=== PATIENT | female | born 1990 | race Two or more races ===

== ENCOUNTER 2018-11-09 13:30 | Observation (INO) | payer MEDICAID ==
[~2018-11-09] VITALS: Ht 149.9 cm; Wt 66.7 kg
[~2018-11-09 13:30] MED LIST: LABE200T18 PO; PREN-96 PO
[2018-11-09] MEDS ORDERED: LACTATED RINGER'S 1,000 ML IV ONE ×2 (14:30→16:00)
[2018-11-09 15:11] LABS: Basophils # (auto) 0 uL; Basophils % (auto) 0.1 % (0.0-2.0); Eosinophils # (auto) 0 uL; Eosinophils % (auto) 0.3 % (0.0-7.0); Hematocrit 36.9 % (36.0-46.0); Hemoglobin 12.9 g/dL (12.2-16.2); Lymphocytes # (auto) 1.1 uL; Lymphocytes % (auto) 9.9 % (10.0-50.0); Mean Corpuscular Hemoglobin 32.9 pg (28.0-32.0); Mean Corpuscular Volume 94.1 fL (80.0-100.0); Monocytes # (auto) 0.5 uL; Monocytes % (auto) 4.5 % (0.0-12.0); Neutrophils # (auto) 9.5 uL; Neutrophils % (auto) 85.2 % (37.0-80.0); Platelet Count (auto) 249 10^3/uL (140-450); Red Blood Cells 3.92 10^6/uL (4.0-5.20); Red Cell Distribution Width 13.1 % (11.8-14.3); White Blood Cell 11.2 10^3/uL (4.4-10.8)
[2018-11-09 15:27] LABS: INR 0.86 (0.9-1.15); Partial Thromboplastin Time 25.2 sec (23.64-32.05)
[2018-11-09 15:41] LABS: Albumin 3.1 g/dL (3.4-5.0); Potassium 3.9 mmol/L (3.5-5.1)
[2018-11-09 15:46] LABS: Bilirubin, Total 0.3 mg/dL (0.2-1.0); Total Protein 7.2 g/dL (6.4-8.2); Uric Acid 3.3 mg/dL (2.6-6.0)
[2018-11-09 15:59] LABS: Urine Bacteria NONE SEEN /hpf (None Seen); Urine Blood Negative /uL (Negative); Urine Specific Gravity 1.005 (1.001-1.035); Urine WBC 2 /hpf (0 - 5)
[2018-11-09] MEDS ORDERED: BETAMETHASONE ACET (6MG/ML) 5ML VIAL IM SCH (17:25)
--- NOTE | 2018-11-09 17:57 | NUR ---
IV removal IV DC'd with clean sterile technique, catheter fully intact. Pressure dressing applied to site. Patient tolerated well.
== END 2018-11-09 18:10 | disposition home or self-care (01) | DRG 563 ==
LOC: LDRP 13:30
PROVIDERS: ADMIT Specialist; ATTEND Specialist
DX: O60.03 Preterm labor without delivery, third trimester (principal); O36.8330 Maternal care for abnormalities of the fetal heart rate or rhythm, third trimester, not applicable or unspecified; Z3A.29 29 weeks gestation of pregnancy
CPT/HCPCS: 36415; 59025; 76815; 80053; 81001; 81002; 84550; 85025; 85362; 85610; 85730; 96372; G0378; J0702; 96361; 96365; 96366

== ENCOUNTER 2018-11-10 18:30 | Observation (INO) | payer MEDICAID ==
[~2018-11-10] VITALS: Ht 144.8 cm; Wt 59.0 kg
[~2018-11-10 18:30] MED LIST changes: -LABE200T18 PO
[2018-11-10] MEDS ORDERED: BETAMETHASONE ACET (6MG/ML) 5ML VIAL IM ONE ×2 (19:15→19:45)
[2018-11-10 20:03] LABS: Urine Bacteria NONE SEEN /hpf (None Seen); Urine Blood Negative /uL (Negative); Urine Specific Gravity 1.004 (1.001-1.035); Urine WBC 1 /hpf (0 - 5)
[2018-11-10 20:10] LABS: Alcohol, Urine < 3.0 mg/dL (0-5); Amphetamine Screen, Urine NEGATIVE (NEGATIVE); Barbiturate Scree,Urine NEGATIVE (NEGATIVE); Benzodiazephine Screen, Urine NEGATIVE (NEGATIVE); Cannabinoid Screen, Urine NEGATIVE (NEGATIVE); Cocaine Screen, Urine NEGATIVE (NEGATIVE); Opiate Scree,Urine NEGATIVE (NEGATIVE); Phencyclidine Screen, Urine NEGATIVE (NEGATIVE)
[2018-11-10] MEDS ORDERED: NIFEdipine 10 MG CAP PO ONE (20:30)
== END 2018-11-10 21:00 | disposition home or self-care (01) | DRG 563 ==
LOC: LDRP 18:30
PROVIDERS: ADMIT Specialist; ATTEND Specialist
DX: O60.03 Preterm labor without delivery, third trimester (principal); Z3A.29 29 weeks gestation of pregnancy
CPT/HCPCS: 59025; 80307; 81001; 81002; 96372; G0378